=== PATIENT | male | born 1985 | race Caucasian/White ===

== ENCOUNTER 2019-05-24 21:09 | Emergency (ER) | payer OTHER ==
[~2019-05-24] VITALS: Ht 177.8 cm; Wt 72.7 kg
[2019-05-24 21:18] VITALS: TEMP 98.8
[2019-05-24 22:18] LABS: BASO % 0.5 % (0.0-2.0); EOS # 0.2 (0.0-0.7); EOS % 2.5 % (0-4.0); GRAN # 3.3 (1.4-6.5); GRAN % 53.6 % (42.2-75.2); HEMATOCRIT 44.1 % (42.0-52.0); HEMOGLOBIN 15.3 g/dl (13.5-18.0); LYMPH # 2.3 (1.2-3.4); MEAN CELL VOLUME 91 fl (80.0-100.0); MEAN CORPUSCULAR HEMOGLOBIN 32 pg (27.0-31.0); MEAN CORPUSCULAR HGB CONC 35 g/dl (33.0-37.0); MEAN PLATELET VOLUME 11.4 fl (7.4-10.4); MONO # 0.4 (0.1-0.6); MONO % 6.2 % (1.7-9.3); PLATELET COUNT 182 K/mm3 (130-400); RED BLOOD COUNT 4.86 M/mm3 (4.20-5.60); REDCELL DISTRIBUTION WIDTH-CV 11.6 % (11.5-14.5)
[2019-05-24 22:26] LABS: ALANINE AMINOTRANSFERASE 32 U/L (21-72); ALKALINE PHOSPHATASE 97 U/L (50-136); ANION GAP 12 mmol/L (7-16); AST,SGOT 33 U/L (15-37); BILIRUBIN,TOTAL 0.4 mg/dL (0.0-1.0); BLOOD UREA NITROGEN 13 mg/dL (9-20); CALCIUM 9.7 mg/dL (8.4-10.2); CARBON DIOXIDE 28 mmol/L (22-30); CHLORIDE 104 mmol/L (98-107); CREATININE, serum 0.69 (0.66-1.25); GLUCOSE 90 mg/dL (74-106); LIPASE 82 U/L (23-300); POTASSIUM 3.9 mmol/L (3.4-5.0); SODIUM 143 mmol/L (137-145); TOTAL PROTEIN 8.4 gm/dL (6.4-8.2)
[2019-05-24 22:27] LABS: COLLECTION METHOD CLEAN CATCH
[2019-05-24 22:29] LABS: C-REACTIVE PROTEIN < 0.5 mg/dL (0.0-0.9)
[2019-05-24 22:43] LABS: PH 6 (5-8); SQUAMOUS EPITHELIAL None Seen /hpf; URINE APPEARANCE Clear; URINE BACTERIA None Seen /hpf; URINE BILIRUBIN Negative (NEGATIVE); URINE BLOOD Negative (NEGATIVE); URINE COLOR Straw; URINE GLUCOSE Negative (NEGATIVE); URINE KETONE Negative (NEGATIVE); URINE LEUKOCYTE ESTERASE Negative (NEGATIVE); URINE NITRATE Negative (NEGATIVE); URINE PROTEIN(semi-quant) Negative (NEGATIVE); URINE RBC 0-2 /hpf; URINE UROBILINOGEN Negative (NEGATIVE)
[2019-05-25 00:33] VITALS: BP 90/73; PULSE 105
== END 2019-05-25 00:39 | disposition home or self-care (01) ==
LOC: COL.ER 21:09
PROVIDERS: Nurse Practitioner
DX: R10.11 Right upper quadrant pain (principal); R07.89 Other chest pain; M54.6 Pain in thoracic spine
CPT/HCPCS: J2270; J7030

== ENCOUNTER 2019-11-28 14:32 | Emergency (ER) | payer SELFPAY ==
[~2019-11-28] VITALS: Ht 177.8 cm; Wt 77.3 kg
[2019-11-28 14:45] VITALS: TEMP 98.2
[2019-11-28 15:36] LABS: COLLECTION METHOD CLEAN CATCH
[2019-11-28 15:58] LABS: BASO % 0.5 % (0.0-2.0); EOS % 0.3 % (0-4.0); GRAN # 4.3 (1.4-6.5); GRAN % 67.3 % (42.2-75.2); HEMATOCRIT 43.1 % (42.0-52.0); HEMOGLOBIN 14.8 g/dl (13.5-18.0); LYMPH # 1.7 (1.2-3.4); LYMPH % 26.2 % (20.0-51.0); MEAN CELL VOLUME 90 fl (80.0-100.0); MEAN CORPUSCULAR HEMOGLOBIN 31 pg (27.0-31.0); MEAN CORPUSCULAR HGB CONC 34 g/dl (33.0-37.0); MEAN PLATELET VOLUME 11.6 fl (7.4-10.4); MONO # 0.4 (0.1-0.6); MONO % 5.5 % (1.7-9.3); PLATELET COUNT 201 K/mm3 (130-400); RED BLOOD COUNT 4.79 M/mm3 (4.20-5.60); REDCELL DISTRIBUTION WIDTH-CV 11.6 % (11.5-14.5)
[2019-11-28 16:00] LABS: MUCOUS Present /lpf; PH 7 (5-8); SQUAMOUS EPITHELIAL None Seen /hpf; URINE APPEARANCE Clear; URINE BACTERIA None Seen /hpf; URINE BILIRUBIN Negative (NEGATIVE); URINE BLOOD Negative (NEGATIVE); URINE COLOR Yellow; URINE GLUCOSE Negative (NEGATIVE); URINE KETONE Negative (NEGATIVE); URINE LEUKOCYTE ESTERASE Negative (NEGATIVE); URINE NITRATE Negative (NEGATIVE); URINE PROTEIN(semi-quant) Negative (NEGATIVE); URINE RBC 0-2 /hpf; URINE UROBILINOGEN Negative (NEGATIVE)
[2019-11-28 16:09] LABS: ALANINE AMINOTRANSFERASE 28 U/L (4-49); ALBUMIN 4.9 gm/dL (3.5-5.0); ALKALINE PHOSPHATASE 109 U/L (50-136); ANION GAP 10 mmol/L (7-16); AST,SGOT 26 U/L (15-37); BILIRUBIN,TOTAL 0.7 mg/dL (0.0-1.0); BLOOD UREA NITROGEN 7 mg/dL (9-20); CALCIUM 9.7 mg/dL (8.4-10.2); CARBON DIOXIDE 28 mmol/L (22-30); CHLORIDE 101 mmol/L (98-107); CREATININE, serum 0.75 (0.66-1.25); GLUCOSE 102 mg/dL (74-106); LIPASE 62 U/L (23-300); POTASSIUM 3.8 mmol/L (3.4-5.0); SODIUM 139 mmol/L (137-145); TOTAL PROTEIN 8.4 gm/dL (6.4-8.2)
[2019-11-28 16:11] LABS: C-REACTIVE PROTEIN < 0.5 mg/dL (0.0-0.9)
[2019-11-28] MEDS ORDERED: ULTRAM 50MG TAB50 MG PO (17:09)
[2019-11-28 17:36] VITALS: BP 135/80; PULSE 85
== END 2019-11-28 17:33 | disposition home or self-care (01) ==
LOC: COL.ER 14:32
PROVIDERS: Emergency Medicine
DX: R10.31 Right lower quadrant pain (principal)
CPT/HCPCS: J2270; J2405; J7030; Q9967

== ENCOUNTER 2023-06-19 23:18 | Emergency (ER) | payer BC ==
[~2023-06-19] VITALS: Ht 177.8 cm; Wt 77.3 kg
[~2023-06-19 23:18] MED LIST: ULTRAM 50MG TAB50 MG PO
[2023-06-19 23:34] VITALS: TEMP 98.4
[2023-06-20] MEDS ORDERED: Pantoprazole 40 MG in NS 10 ML IV ONE (00:45)
[2023-06-20] MEDS ORDERED: Sucralfate Susp 1 GM/10 ML UD PO ONE (00:45)
[2023-06-20] MEDS ORDERED: Dicyclomine 10 MG CAP PO ONE (00:45)
[2023-06-20] MEDS ORDERED: NS 1,000 ML IV ONE (00:45)
[2023-06-20 01:04] LABS: BASO % 0.6 % (0.0-2.0); EOS # 0.2 K/mm3 (0.0-0.7); EOS % 2.9 % (0.0-4.0); GRAN # 3.1 K/mm3 (1.4-6.5); HEMATOCRIT 41.7 % (42.0-52.0); HEMOGLOBIN 14.7 g/dl (13.5-18.0); LYMPH # 2.5 K/mm3 (1.2-3.4); LYMPH % 39.6 % (20.0-51.0); MEAN CELL VOLUME 91 fl (80.0-100.0); MEAN CORPUSCULAR HEMOGLOBIN 32 pg (27-31); MEAN CORPUSCULAR HGB CONC 35 g/dl (33.0-37.0); MEAN PLATELET VOLUME 11.1 fl (7.4-10.4); MONO # 0.5 K/mm3 (0.1-0.6); MONO % 7.6 % (1.7-9.3); PLATELET COUNT 200 K/mm3 (130-400); REDCELL DISTRIBUTION WIDTH-CV 11.8 % (11.5-14.5)
[2023-06-20 01:23] LABS: ALANINE AMINOTRANSFERASE 22 U/L (0-55); ALBUMIN 4.4 gm/dL (3.5-5.0); ALKALINE PHOSPHATASE 105 U/L (40-150); ANION GAP 10 mmol/L (7-16); AST,SGOT 17 U/L (5-34); BILIRUBIN,TOTAL 0.4 mg/dL (0.2-1.2); BLOOD UREA NITROGEN 11 mg/dL (9-21); C-REACTIVE PROTEIN 0.08 mg/dL (0.00-0.50); CALCIUM 9.2 mg/dL (8.4-10.2); CARBON DIOXIDE 25 mmol/L (22-29); CHLORIDE 106 mmol/L (98-107); CREATININE, serum 0.81 mg/dL (0.72-1.25); GLUCOSE 96 mg/dL (70-99); LIPASE 20 U/L (8-78); POTASSIUM 3.7 mmol/L (3.5-4.5); SODIUM 141 mmol/L (136-145); TOTAL PROTEIN 7.6 gm/dL (6.2-8.1)
[2023-06-20 01:30] LABS: TROPONIN-I < 0.010 ng/mL (0.00-0.033)
[2023-06-20] MEDS ORDERED: Iohexol 300 - 100 ML VIAL IV ONE (01:46)
[2023-06-20] MEDS ORDERED: NS 64 ML IV SCH (01:46)
[2023-06-20] MEDS ORDERED: NEXIUM ORA40 MG/Pack PEG (03:24)
[2023-06-20] MEDS ORDERED: CARAFATE S1 GM/10 ML PO (03:24)
[2023-06-20 03:56] VITALS: BP 138/92; PULSE 91
== END 2023-06-20 03:56 | disposition home or self-care (01) ==
LOC: COL.ER 23:18
PROVIDERS: Emergency Medicine
DX: K21.00 Gastro-esophageal reflux disease with esophagitis, without bleeding (principal); I10 Essential (primary) hypertension
CPT/HCPCS: C9113; J7030; Q9967

== ENCOUNTER 2024-01-03 09:06 | Emergency (ER) | payer BC ==
[~2024-01-03] VITALS: Ht 177.8 cm; Wt 90.7 kg
[~2024-01-03 09:06] MED LIST changes: +CARAFATE S1 GM/10 ML PO; +NEXIUM ORA40 MG/Pack PEG
[2024-01-03] MEDS ORDERED: NS 1,000 ML IV ONE (09:45)
[2024-01-03] MEDS ORDERED: Morphine 4 MG/ML VIAL IV PRN (09:45)
[2024-01-03] MEDS ORDERED: Ondansetron 4 MG/2 ML VIAL IV ONE (09:45)
[2024-01-03 09:50] LABS: BASO % 0.5 % (0.0-2.0); EOS # 0.1 K/mm3 (0.0-0.7); EOS % 1.5 % (0.0-4.0); GRAN # 4.9 K/mm3 (1.4-6.5); GRAN % 65.9 % (42.2-75.2); HEMATOCRIT 44.6 % (42.0-52.0); HEMOGLOBIN 15.6 g/dl (13.5-18.0); LYMPH # 1.9 K/mm3 (1.2-3.4); MEAN CELL VOLUME 89 fl (80.0-100.0); MEAN CORPUSCULAR HEMOGLOBIN 31 pg (27-31); MEAN CORPUSCULAR HGB CONC 35 g/dl (33.0-37.0); MEAN PLATELET VOLUME 11.7 fl (7.4-10.4); MONO # 0.4 K/mm3 (0.1-0.6); MONO % 5.8 % (1.7-9.3); PLATELET COUNT 184 K/mm3 (130-400); REDCELL DISTRIBUTION WIDTH-CV 11.9 % (11.5-14.5)
[2024-01-03 10:09] LABS: ALBUMIN 4.7 g/dL (3.5-5.0); BILIRUBIN,TOTAL 0.4 mg/dL (0.2-1.2); CREATININE, serum 0.85 mg/dL (0.72-1.25); POTASSIUM 3.7 mEq/L (3.5-4.5); TOTAL PROTEIN 8.2 g/dl (6.2-8.1)
[2024-01-03] MEDS ORDERED: Iohexol 300 - 100 ML VIAL IV ONE (10:29)
[2024-01-03] MEDS ORDERED: NS 100 ML IV ONE (10:30)
[2024-01-03] MEDS ORDERED: ZOFRAN ODT4 MG PO (11:22)
[2024-01-03 11:27] VITALS: BP 134/85; PULSE 82; TEMP 98.4
== END 2024-01-03 11:34 | disposition home or self-care (01) ==
LOC: COL.ER 09:06
PROVIDERS: Personal Emergency Response Attendant
DX: R10.84 Generalized abdominal pain (principal); R11.2 Nausea with vomiting, unspecified
CPT/HCPCS: J2270; J2405; J7030; Q9967